=== PATIENT | female | born 1975 | race Hispanic/Latino ===

== ENCOUNTER 2016-10-08 16:31 | Emergency (ER) | payer OTHER ==
[~2016-10-08] VITALS: Ht 147.3 cm; Wt 54.5 kg
[2016-10-08 16:39] VITALS: BP 133/82; PULSE 72; RESP 12; O2SAT 100
--- NOTE | 2016-10-08 17:20 | ED.REPORT ---
HPI-General Illness Date of Service Oct 08, 2016 ED Provider: Rey Clay MD A 41 year old female with a history of pneumonia presents to the ED complaining of near-syncope. The pt was walking today when she experienced a moment where she felt like she was going to black out, though she was able to steady herself and denies falling. She felt nauseated, flushed, diaphoretic, dizzy and fatigued after this but recovered within a couple of minutes. She denies chest pain, shortness of breath, abdominal pain, diarrhea, constipation, dysuria, hematuria, hematochezia or vomiting. The pt experienced one more episode of this today and felt a continuing "hot feeling" in her face and head after these episodes. The pt's PCP has diagnosed her as "premenopausal" but she's unclear if it's related. The episode lasted a couple of minutes and resolved on its own. No other complaints at this time. Nursing Notes Stated Complaint: BLACKOUTS/BURNING UP Chief Complaint: General Complaint Nursing Notes Reviewed: Yes Allergies: Coded Allergies: shellfish derived (Verified Allergy, Mild, 10/08/16) Scheduled Azithromycin (Zithromax (Z-[place])) 250 Mg Tablet 250 MG PO DIRECTED Take two tablets by mouth on day 1, then take one tablet daily on days 2 through 5. General Time Seen by MD: 17:07 Chief Complaint Other (Near syncope) Hx Obtained From: Patient Arrived By: Walk-in Sudden in Onset?: Yes Recent Healthcare: No recent hospitalization, Recent doctor visit Similar Sx Previous: No Past Medical History Past Medical History complicated pneumonia (cardiac arrest, induced coma) Past Surgical History none reported Smoking History Unknown if Ever Smoker Ambulatory Status Independent Review of Systems near syncope feeling flushed Full Review of Systems Respiratory: Denies: Non-productive cough, Shortness of breath Cardiovascular: Denies: Chest pain GI: Reports: Nausea, Denies: Abdominal pain, Constipation, Diarrhea, Hematochezia, Vomiting Female: Denies: Dysuria, Hematuria Musculoskeletal: Denies: Extremity pain, Neck pain Skin: Reports Diaphoresis, Denies Rash Neurologic: Reports: Dizziness Complete sys rev & neg: except as marked. Physical Exam Constitutional: Well-developed, well-nourished. Not diaphoretic. Head: Normocephalic and atraumatic. Mouth/Throat: Oropharynx is clear and moist. No oropharyngeal exudate. Eyes: EOM are normal. Pupils are equal, round, and reactive to light. Neck: Supple, no tracheal deviation. Cardiovascular: Normal rate, regular rhythm. No m/r/g. Equal and intact distal pulses throughout. Pulmonary/Chest: Effort normal and breath sounds normal. No respiratory distress. Abdominal: Soft. No distension. No focal tenderness to palpation. There is no rebound or guarding. Bowel sounds present. Musculoskeletal: Range of motion grossly intact, moving all extremities. No edema or tenderness appreciated. Neurological: AOx3. Grossly nonfocal exam. Strength and sensation intact and equal to bilateral upper and lower extremities. Normal finger to nose testing. Skin: Warm and dry, no rashes or pallor appreciated. Psychiatric: Appropriate mood and affect. Behavior appears normal. Vital Signs Vital Signs Date Time Temp Pulse Resp B/P Pulse Ox O2 Delivery O2 Flow Rate FiO2 10/08/16 18:30 69 16 110/50 97 Room Air 10/08/16 16:39 36.8 72 12 133/82 100 Room Air Initial VS: Reviewed Interpretation & Diagnostics Lab Results Interpretation Result Diagram: 10/08/16 1715 10/08/16 1715 Test 10/08/16 17:15 10/08/16 17:18 White Blood Count 6.6th/mm3 (3.8-10.1) Red Blood Count 3.87mil/mm3 (3.90-5.20) Hemoglobin 13.1g/dL (12.0-15.6) Hematocrit 37.2% (35.0-46.0) Mean Corpuscular Volume 96.1fL (81-100) Mean Corpuscular Hemoglobin 33.9pg (27.0-35.0) Mean Corpuscular Hemoglobin Concent 35.2% (32.0-37.0) Red Cell Distribution Width 11.9% (12.3-15.4) Platelet Count 188bil/L (150-400) Neutrophils (%) (Auto) 46.0% (40-74) Lymphocytes (%) (Auto) 44.7% (14-46) Monocytes (%) (Auto) 7.7% (4-12) Eosinophils (%) (Auto) 0.8% (0-5) Basophils (%) (Auto) 0.3% (0-3) Sodium Level 138mEq/L (134-144) Potassium Level 3.7mEq/L (3.5-5.2) Chloride Level 102mEq/L (97-108) Carbon Dioxide Level 24mmol/L (18-29) Blood Urea Nitrogen 16mg/dL (6-24) Creatinine 0.75mg/dL (0.57-1.00) Estimat Glomerular Filtration Rate 121mL/min (>59) Glucose Level 102mg/dL (60-99) Calcium Level 9.5mg/dL (8.5-10.1) Magnesium Level 2.1mg/dL (1.6-2.6) Total Bilirubin 0.2mg/dL (0.0-1.2) Aspartate Amino Transf (AST/SGOT) 17U/L (0-50) Alanine Aminotransferase (ALT/SGPT) 19U/L (0-32) Alkaline Phosphatase 41U/L (25-150) Troponin T < 0.010ug/L (0.0-0.011) Total Protein 7.4g/dL (6.4-8.4) Albumin 4.3g/dL (3.4-5.0) Thyroid Stimulating Hormone (TSH) 3.640uIU/mL (0.450-4.500) Free Thyroxine 1.21ng/dL (0.82-1.77) Urine Color Straw (YELLOW) Urine Appearance Hazy (CLEAR,HAZY) Urine pH 6.5 (5.0-8.0) Urine Specific Shirley 1.010 (1.003-1.035) Urine Protein Negativemg/dL (NEG,TRACE) Urine Glucose (UA) Negativemg/dL (NEGATIVE) Urine Ketones Negativemg/dL (NEGATIVE) Urine Occult Blood Moderate (NEGATIVE) Urine Nitrite Negative (NEGATIVE) Urine Bilirubin Negative (NEGATIVE) Urine Urobilinogen Normalmg/dL (NORMAL) Urine Leukocyte Esterase Negative (NEGATIVE) Urine RBC 3-10/hpf (0-2) Urine WBC 0-5/hpf (0-5) Urine Epithelial Cells Few/hpf (NONE-MOD) Urine Crystals None seen (NONE SEEN) Urine Bacteria Many/hpf (NONE-FEW) Urine Hyaline Casts None/lpf (NONE) Urine Granular Casts None seen (NONE SEEN) Urine Waxy Casts None seen (NONE SEEN) Urine Red Blood Cell Casts None seen (NONE SEEN) Urine White Blood Cell Casts None seen (NONE SEEN) Urine Mucus None seen (None Seen) Urine Trichomonas None seen (NONE SEEN) Urine Yeast None (NONE SEEN) Urinalysis Comment None Urine Culture Reflexed Indicated ECG Interpretation ECG Interpretation: normal sinus rhythm with a rate of 59 normal intervals Time: 17:07 Interpreted by: ED physician X-Ray Chest Interpretation Chest Xray Interpretation: IMPRESSION: Mild streaky opacities project in the right lung base, probably low-grade aspiration/atelectasis. Dictated by: Mahendra Goodrich M.D. on 10/08/2016 at 19:01 Approved by: Mahendra Goodrich M.D. on 10/08/2016 at 19:02 Interpretation / Wet Read by: Interpret - Radiologist Re-Eval/Medical Decision Med Decision/Clinical Course In summary, 41-year-old female presenting to the ED for evaluation after a near syncopal episode earlier today. She is currently asymptomatic. She denies any chest pain, palpitations, shortness of breath, or abdominal pain associated with these episodes. They are associated with feeling flushed, nauseous, lightheaded. She appears to be euvolemic at this time; blood glucose within normal limits. EKG demonstrates no acute ischemic changes, normal intervals. Laboratory studies also grossly within normal limits without any electrolyte abnormalities. Her chest x-ray does demonstrate a small possible pneumonia on the right without any associated systemic symptoms, I doubt that this is related to her near syncope earlier today. It seems most consistent with a vasovagal episode. However, I would like her to follow up with her primary physician in the next several days and I plan to treat her for this possible pneumonia given her company and history. Careful return precautions were discussed and the patient was agreeable to the plan as stated, no further questions. Source of Hx: Old records Time of Eval: 19:16 Patient Status: Condition improved Re-Evaluation/Progress Note: Pt rechecked, who is resting comfortably. The diagnosis and plan for discharge are discussed. The pt understands and agrees with the plan. All questions are addressed at this time. Counseled Regarding: Diagnosis, Lab results, Need for follow-up, When/why to return to ED Discharge & Departure Primary Impression: Syncope Syncope type: unspecified Qualified Code: R55 - Syncope and collapse Additional Impression: Pneumonia Pneumonia type: due to unspecified organism Laterality: right Lung location : lower lobe of lung Qualified Code: J18.1 - Lobar pneumonia, unspecified organism Disposition: Home Discharge Condition All VS Reviewed: Yes Condition: Stable Patient Instructions: Pneumonia (ED), Syncope (ED) Additional Instructions: Thank you for allowing us to be a part of your care. Take Azithromycin as directed. Follow up with your primary care physician in the next one to two days for further evaluation. Return to the emergency department if you develop any new or worsening symptoms including abdominal pain, dysuria, chest pain or shortness of breath. Referrals: [facility] Scribe Attestation Portions of this note were transcribed by Blair Cartwright. I, Dr. Clay personally performed the history, physical exam and medical decision-making; I reviewed and confirmed the accuracy of the information in the transcribed note. Signed by: Kaity Da Silva, 10/08/2016 and 1923. copies to: [facility] Rey Clay MD Oct 08, 2016 17:20 BLAIR CARTWRIGHT Oct 08, 2016 17:31
[2016-10-08 17:21] LABS: BASOPHILS % (AUTO) 0.3 % (0-3); EOSINOPHILS % (AUTO) 0.8 % (0-5); MONOCYTES % (AUTO) 7.7 % (4-12); Mean Corpuscular Hemoglobin 33.9 pg (27.0-35.0); Mean Corpuscular Volume 96.1 fL (81-100); Platelet Count 188 bil/L (150-400)
[2016-10-08 17:36] LABS: APPEARANCE,URINE HAZY (CLEAR,HAZY); COLOR,URINE STRAW (YELLOW); OCCULT BLOOD,URINE MODERATE (NEGATIVE); PH,URINE 6.5 (5.0-8.0); UROBILINOGEN,URINE NORMAL (NORMAL)
[2016-10-08 17:51] LABS: Magnesium 2.1 mg/dL (1.6-2.6)
[2016-10-08 18:30] VITALS: BP 110/50; PULSE 69; RESP 16; O2SAT 97
--- NOTE | 2016-10-08 19:03 | DRSVH ---
PROCEDURE: X-RAY CHEST, TWO VIEWS ([id number]) INDICATIONS: syncope TECHNIQUE: 2 views of the chest were acquired. COMPARISON: None. FINDINGS: Surgical changes and devices: None. Lungs and pleura: No pleural effusions or pneumothorax. Streaky opacities projecting in the medial r ight lung base. No focal consolidation Mediastinum: Mediastinal contours are normal. Heart size is normal. Bones and chest wall: No suspicious bony abnormalities. Soft tissues appear unremarkable. IMPRESSION: Mild streaky opacities project in the right lung base, probably low-grade aspiration/atel ectasis. Dictated by: Mahendra Goodrich M.D. on 10/08/2016 at 19:01 Approved by: Mahendra Goodrich M.D. on 10/08/2016 at 19:02
[2016-10-08] MEDS ORDERED: AZIT250T4 PO (19:23)
[2016-10-08 19:36] VITALS: BP 114/61; PULSE 69; RESP 16; O2SAT 97
== END 2016-10-08 19:37 | disposition home or self-care (01) ==
LOC: SED 16:31
DX: R55 Syncope and collapse (principal); J18.1 Lobar pneumonia, unspecified organism; Z91.013 Allergy to seafood